=== PATIENT | female | born 1990 | race Caucasian/White ===

== ENCOUNTER → 2023-11-05 07:42 | Outpatient (REF) | payer OTHER, SELFPAY ==
[2023-11-05 14:27] LABS: Hepatitis B Surface Antigen Negative (Negative)
[2023-11-05 14:40] LABS: HIV Combo Negative (Negative)
[2023-11-05 14:45] LABS: Hepatitis B Surface Antibody Positive; Hepatitis C Antibody Negative (Negative)
== END ==
LOC: OHS 07:42
PROVIDERS: ATTENDING PHYSICIAN Nurse Practitioner Family
DX: Z57.8 Occupational exposure to other risk factors (principal)
CPT/HCPCS: 36415; 86706; 86803; 87340; 87389

== ENCOUNTER → 2024-07-27 10:42 | Outpatient (REF) | payer OTHER, BC, SELFPAY | LOC: WDC 10:42 | PROVIDERS: ATTENDING PHYSICIAN Nurse Practitioner Acute Care | DX: Z12.31 Encounter for screening mammogram for malignant neoplasm of breast (principal) | CPT/HCPCS: 77063; 77067 ==

== ENCOUNTER → 2025-01-19 09:41 | Outpatient (REF) | payer BC, SELFPAY ==
[2025-01-19 11:16] LABS: ALT (SGPT) 18 U/L (0-35); AST (SGOT) 19 U/L (14-36); Albumin 4.7 g/dl (3.5-5.0); Alkaline Phosphatase 41 U/L (38-126); Blood Urea Nitrogen 15 mg/dl (7-17); Calcium 9.6 mg/dl (8.4-10.2); Carbon Dioxide 26 mmol/L (22-30); Chloride 105 mmol/L (98-107); Glucose 92 mg/dl (70-99); Potassium 4.7 mmol/L (3.5-5.1); Sodium 136 mmol/L (135-145); Total Protein 7.7 g/dl (6.3-8.2); eGFR > 60.00
[2025-01-19 14:08] LABS: Glycohemoglobin (HgbA1c) 5.1 % (4.0-5.6)
== END ==
LOC: REG 09:41
PROVIDERS: ATTENDING PHYSICIAN Internal Medicine; FAMILY PHYSICIAN Family Medicine
DX: R00.2 Palpitations (principal); R68.89 Other general symptoms and signs; Z13.29 Encounter for screening for other suspected endocrine disorder; Z13.1 Encounter for screening for diabetes mellitus
CPT/HCPCS: 36415; 80053; 83036; 84443

== ENCOUNTER → 2025-05-24 10:05 | Outpatient (REF) | payer BC, SELFPAY ==
[2025-05-24 10:45] LABS: Hematocrit 36.9 % (37.0-47.0); Hemoglobin 13.1 g/dL (12.0-16.0); Mean Corp Hgb Conc. 35.5 g/dL (33.0-37.0); Mean Corpuscular Volume 87.9 fL (81.0-99.0); Nucleated Red Blood Cells % 0 %; Platelet Count 270 10^3/uL (130-400); Red Cell Dist. Width 11.7 % (11.5-14.5)
[2025-05-24 11:25] LABS: ALT (SGPT) 21 U/L (0-35); AST (SGOT) 19 U/L (14-36); Albumin 4.4 g/dl (3.5-5.0); Alkaline Phosphatase 48 U/L (38-126); Blood Urea Nitrogen 10 mg/dl (7-17); Calcium 9.6 mg/dl (8.4-10.2); Carbon Dioxide 29 mmol/L (22-30); Chloride 102 mmol/L (98-107); Glucose 92 mg/dl (70-99); HDL Cholesterol 62 mg/dl; LDH 132 U/L (120-246); LDL Cholesterol, Calculated 110 mg/dl; Potassium 4.0 mmol/L (3.5-5.1); Sodium 134 mmol/L (135-145); Total Protein 7.5 g/dl (6.3-8.2); Very Low Density Lipoprotein 10 mg/dl (0-30); eGFR > 60.00
== END ==
LOC: REG 10:05
PROVIDERS: ATTENDING PHYSICIAN Internal Medicine Hematology & Oncology; FAMILY PHYSICIAN Family Medicine
DX: C81.11 Nodular sclerosis Hodgkin lymphoma, lymph nodes of head, face, and neck (principal); E61.1 Iron deficiency; Z92.3 Personal history of irradiation
CPT/HCPCS: 36415; 80053; 80061; 83615; 84443; 85025; 85652

== ENCOUNTER → 2025-06-13 07:12 | Outpatient (REF) | payer BC, SELFPAY | LOC: RAD 07:12 | PROVIDERS: ATTENDING PHYSICIAN Internal Medicine Hematology & Oncology; FAMILY PHYSICIAN Family Medicine | DX: C81.11 Nodular sclerosis Hodgkin lymphoma, lymph nodes of head, face, and neck (principal); E61.1 Iron deficiency | CPT/HCPCS: 93880 ==

== ENCOUNTER → 2025-06-14 17:40 | Outpatient (REF) | payer BC, SELFPAY | LOC: RCS 17:40 | PROVIDERS: ATTENDING PHYSICIAN Internal Medicine Hematology & Oncology; FAMILY PHYSICIAN Family Medicine | DX: C81.11 Nodular sclerosis Hodgkin lymphoma, lymph nodes of head, face, and neck (principal); E61.1 Iron deficiency | CPT/HCPCS: 93306 ==